=== PATIENT | female | born 1975 | race Caucasian/White ===

== ENCOUNTER 2022-06-01 09:42 | Emergency (ER) | payer OTHER, SELFPAY ==
--- NOTE | ~2022-06-01 | CT_ITS ---
EXAMINATION: CT ABDOMEN AND PELVIS WITHOUT CONTRAST CLINICAL INFORMATION: 46-year-old female with flank pain. Hematuria. COMPARISON: None TECHNIQUE: Multidetector volumetric imaging was performed from the superior aspect of the liver through the pubic symphysis. Sagittal and coronal reformatted images were obtained on the technologist's workstation. This CT examination was performed using dose optimization techniques as appropriate, variously including the following: *Automated exposure control *Adjustment of mA and/or kV according to patient size (this includes techniques or standardized protocols for targeted exams where dose is matched to indication/reason for exam; i.e. extremities or head) *Use of iterative reconstruction technique DLP: 678 mGy-cm FINDINGS: LUNG BASES: Normal. No pulmonary consolidation or pleural effusion. LIVER: The liver has normal size, shape, and attenuation. No evidence of liver mass. GALLBLADDER AND BILIARY TREE: Gallbladder is without radiopaque stones, wall thickening or pericholecystic fluid. No dilated bile ducts. PANCREAS: Normal. No edema, pancreatic ductal dilatation or mass. SPLEEN: Normal. ADRENAL GLANDS: Normal. KIDNEYS AND URETERS: The kidneys have normal size and cortical thickness. No perinephric edema or fluid collection. 0.2 cm calyceal stone of the posterior interpolar region of the right kidney. Otherwise, no evidence of urolithiasis or hydroureteronephrosis. BLADDER: Urinary bladder is empty and suboptimally evaluated. No bladder stones. Note that this examination is not able to exclude any cystitis. BOWEL AND PERITONEUM: Stomach is unremarkable. No dilated loops of bowel. The appendix is normal. No overt bowel wall thickening or mesenteric fat stranding. No free fluid or pneumoperitoneum. ABDOMINAL WALL: Minimal protrusion of fat into the umbilicus. No significant findings in the abdominal wall. VASCULATURE: Unremarkable. LYMPH NODES: No pathologic sized lymph nodes in the abdomen or pelvis. No inguinal lymphadenopathy. PELVIC VISCERA: Hysterectomy. No adnexal mass or pelvic free fluid. Several phleboliths are present within the lower pelvis. MUSCULOSKELETAL: Unremarkable. CT/CT abdomen pelvis wo IV con IMPRESSION: * No specific source of pain is identified. No acute imaging findings in the abdomen or pelvis. * Small, 0.2 cm stone of the right kidney. No large renal stones. Also, no evidence of ureterolithiasis or hydroureteronephrosis.
[2022-06-01 09:57] VITALS: BP 117/75; PULSE 86; RESP 18; TEMP 36.9; O2SAT 95; BMI 32.9
--- NOTE | 2022-06-01 10:06 | ED_ITS ---
HPI - Female Genitourinary General Chief complaint: Urogenital-Female Stated complaint: Kidney infection Time Seen by Provider: 06/01/22 10:05 Source: patient Mode of arrival: ambulatory Limitations: no limitations History of Present Illness HPI Narrative: Patient is a 46-year-old female who presents emergency department for evaluation. Patient states that she was seen at urgent care 2 days ago, received prescription for Macrobid and Pyridium for treatment of urinary tract infection. She has had persistent nausea, and states she is unable to keep her medications down. Additionally reporting bilateral flank pain, when she was initially evaluated she was only having left-sided flank pain. She typically smo kes marijuana to help control her nausea but she states that this has been ineffective. Related Data Previous Rx's Medication Instructions Recorded ondansetron 4 mg disintegrating 4 mg PO Q8H PRN nausea and 06/01/22 tablet vomiting #10 tabs sulfamethoxazole 800 1 tab PO BID 14 days #28 tabs 06/01/22 mg-trimethoprim 160 mg tablet (Bactrim DS) Allergies Allergy/AdvReac Type Severity Reaction Status Date / Time Tetracyclines Allergy Unknown Verified 06/01/22 10:15 Review of Systems Review of Systems: Yes all other systems are reviewed and are negative PMFSH Past Medical History Attestation statement: The following information was validated with the patient. Source: old records reviewed Social History Social History Advance Directives: No Advance Directives Information Provided: Yes Physical Exam Vital Signs: Vital Signs: Last Vital Signs Temp 99.2 F 06/01/22 12:57 Pulse 89 06/01/22 12:57 Resp 16 06/01/22 12:57 BP 103/61 06/01/22 12:57 Pulse Ox 96 06/01/22 12:57 O2 Del Method 06/01/22 12:57 BMI result Body Mass Index 32.9 Appearance: Alert.?Oriented to person, place and time. No acute distress.?Normal affect. Eyes: Pupils equal, round and reactive to light.? ENT: Pharynx normal.?? Neck: Normal inspection.? Neck supple.?? CVS: Heart sounds normal. Normal heart rate and rhythm.? Pulses normal.?? Respiratory: No respiratory distress.? Lung sounds clear to auscultation bilaterally?? Abdomen: Soft and non-tender. Normoactive bowel sounds. Bilateral CVA tenderness Skin: Skin warm and dry.? Normal skin color.?? Extremities: No lower extremity edema.? Neuro: Moves all extremities spontaneously. Sensation intact bilaterally. Ambulates with normal steady gait. Course Reevaluation(s) Reevaluation #1: CBC reveals no leukocytosis, no anemia. CMP is unremarkable, renal function within normal limits. HCG level of 6, patient not currently menstruating repor ts no menses for 10 years, reports history of full hysterectomy 10 years ago in [place], thus denies possibility of Urinalysis with hematuria present, leukocyte esterase and nitrate obscured by urine , she is currently taking Pyridium. Will obtain CT of the abdomen and pelvis to further evaluate for hydronephrosis, nephrolithiasis, ureterolithiasis, evidence of pyelonephritis Time: 11:58 Reevaluation #2: CT without evidence of acute findings, there is a small 0.2 cm stone in the right kidney, no ureterolithiasis or hydroureteronephrosis. Discussed these findings with patient. At this time symptoms continue to be most consistent with urinary tract infection, early pyelonephritis. Will change course of antibiotics, NAHID Nelson new prescription for Bactrim DS b.i.d. for 14 days and ondansetron. Nontoxic, no signs of hypotension/shock, this is not a recurrent pyelonephritis, she is tolerating oral intake, at this time will discharge home and recommend follow-up outpatient with primary care provider. Time: 13:25 Medications Administered Discontinued Medications Generic Name Dose Route Start Last Admin Trade Name Freq PRN Reason Stop Dose Admin Sodium Chloride 1,000 mls @ 999 mls/hr 06/01/22 10:30 06/01/22 13:08 Ns IV 06/01/22 11:30 Infused .Q1H1M SUN Infusion Ondansetron HCl 4 mg 06/01/22 10:19 06/01/22 10:33 Ondansetron Hcl 4 Mg/2 Ml Vial IVPUSH 06/01/22 10:20 4 mg ONCE ONE Administration Medical Decision Making Medical Decision Making [facility] Narrative: Patient is a 46-year-old female with no reported past medical history presenting to emergency department for evaluation of nausea bilateral flank pain in the setting of known UTI. At the time examination she is overall well-appearing. Vitals are stable she is afebrile without tachycardia, tachypnea, or hypoxia. She denies any history of cyclical vomiting marijuana induced vomiting. She has taken 3 doses of Macrobid, states that she begins to vomit 1-2 hours after taking medication. Her abdominal examination is benign, she has CVA tenderness upon very light palpation bilaterally. Will obtain CBC to evaluate for leukocytosis/ anemia, CMP and lipase to evaluate for abnormal electrolytes /abnormal renal function/ abnormal hepatic/biliary function, hCG, and Urinalysis. Patient will receive 1 L normal saline IV, and Zofran 4 mg IV. Disposition pending results. Differential Diagnosis Differential Diagnoses: The differential diagnosis associated with the presentation includes (Urinary tract infection, pyelonephritis, nephrolithiasis, ureteral calculi, hydronephrosis, cholecystitis, lumbar strain, pneumonia) Lab Data MDM Lab Attestation statement: I reviewed the patient's lab results. 06/01/22 10:28 06/01/22 11:11 Labs: Lab Results 06/01/22 06/01/22 06/01/22 Range/Units 10:19 10:28 11:11 WBC 8.3 (4.8-10.8) X10*3/uL RBC 4.75 (4.20-5.50) X10*6/uL Hgb 14.4 (12.0-16.0) g/dl Hct 42.0 (37.0-47.0) % MCV 88.4 (80.0-98.0) fL MCH 30.3 (27.0-33.0) pg MCHC 34.3 (31.0-35.0) g/dl RDW 13.2 (11.0-16.0) % Plt Count 209 (160-400) X10*3/uL MPV 10.1 (9.4-12.3) fL Immature Gran % (Auto) 0.4 (0.0-0.4) % Neut % (Auto) 85.8 H (45-73) % Lymph % (Auto) 5.1 L (20-40) % [place] % (Auto) 8.2 (2-11) % Eos % (Auto) 0.0 (0-4) % Baso % (Auto) 0.5 (0-2) % Lymph # (Auto) 0.4 L (1.2-4.9) X10*3/uL [place] # (Auto) 0.7 (0.1-1.2) X10*3/uL Eos # (Auto) 0.0 (0.0-0.4) X10*3/uL Baso # (Auto) 0.0 (0.0-0.2) X10*3/uL Abs Immat Gran (auto) 0.03 (0.00-0.03) X10*3/uL Absolute Neuts (auto) 7.1 (2.0-8.3) x10*3/uL Absolute Nucleated RBC 0.000 (0.0-0.012) X10*3/uL Nucleated RBC % (auto) 0.0 (0.0-0.2) /100WBC Sodium 137 (135-145) mmol/L Potassium 4.4 (3.3-5.1) mmol/L Chloride 105 (96-108) mmol/L Carbon Dioxide 22 (22-29) mmol/L Anion Gap 14 (12-20) BUN 19 H (9-16) mg/dL Creatinine 0.93 (0.5-1.4) mg/dL Estim Creat Clear Calc 76.4 Estimated GFR > 60 Random Glucose 109 (60-115) mg/dL Calcium 9.0 (8.4-10.2) mg/dL Total Bilirubin 0.9 (0.0-1.0) mg/dL AST 15 (5-31) U/L ALT 15 (0-31) U/L Alkaline Phosphatase 105 (39-117) U/L Total Protein 6.7 (6.5-8.0) g/dL Albumin 4.1 (3.5-5.0) g/dL Lipase 12 (8-78) U/L Beta HCG, Quant 6 mIU/mL Urine Color ORANGE Urine Appearance Hazy Urine pH 6.0 (5.0-9.0) Ur Specific [place] 1.020 (1.005-1.025) Urine Protein See Note (Neg-Trace) mg/dL Urine Glucose (UA) See Note (Negative) mg/dL Urine Ketones See Note (Negative) mg/dL Urine Blood Large (3+) H (Negative) Urine Nitrite See Note (Negative) Ur Leukocyte Esterase See Note (Negative) Urine RBC >20 H (0-2) /HPF Urine WBC 0-5 (0-5) /HPF Ur Squamous Epith Cells 3-5 (0-2) /HPF Urine Bacteria None Seen (None Seen) Hyaline Casts 0-2 (0-2) /LPF Independent Interpretation I performed an independent interpretation of an: CT Scan Radiology Impression Discussion of test interpretation with radiology: I have reviewed the radiologist's reading. Radiologist Impression: CT/CT abdomen pelvis wo IV con IMPRESSION: *? No specific source of pain is identified. No acute imaging findings in the abdomen or pelvis. *? Small, 0.2 cm stone of the right kidney. No large renal stones. Also, no evidence of ureterolithiasis or hydroureteronephrosis. Discharge Plan Discharge Clinical Impression: Urinary tract infection Patient Disposition: Home, Self-Care Instructions: Urinary Tract Infection in Women (ED) Additional Instructions: Stop taking Macrobid. A new prescription for Bactrim DS was sent to your pharmacy, please complete this entire course. In addition, a prescription for Zofran was sent to pharmacy to help with nausea. You can take ibuprofen 200 mg, 3 tablets (600mg) every 6-8 hours as needed for pain, in addition to Tylenol 500 mg, 2 tablets (1,000mg) every 4-6 hours as needed for pain, but not to exceed 3 doses daily (3,000mg).? Please follow-up with your primary care provider for persistent symptoms. Prescriptions: New sulfamethoxazole-trimethoprim [Bactrim DS] 800-160 mg tablet 1 tab PO BID 14 Days Qty: 28 0RF ondansetron 4 mg tablet,disintegrating 4 mg PO Q8H PRN (Reason: nausea and vomiting) Qty: 10 0RF Referrals: Physician,Unknown J [Primary Care Provider] -
[2022-06-01 10:32] LABS: MANUAL DIFF FLAG NO
[2022-06-01] MEDS: ondansetron HCL 4 MG/2 ML VIAL IVPUSH (10:33)
[2022-06-01 10:34] LABS: Basophils Percent Auto 0.5 % (0-2); Hemoglobin 14.4 g/dl (12.0-16.0); Imm Gran Abs Auto 0.03 X10*3/uL (0.00-0.03); Imm Gran Pct Auto 0.4 % (0.0-0.4); Lymphocytes Absolute Auto 0.4 X10*3/uL (1.2-4.9); Lymphocytes Percent Auto 5.1 % (20-40); Mean Corpuscular HGB Conc 34.3 g/dl (31.0-35.0); Mean Corpuscular Hemoglobin 30.3 pg (27.0-33.0); Mean Corpuscular Volume 88.4 fL (80.0-98.0); Mean Platelet Volume 10.1 fL (9.4-12.3); Monocytes Absolute Auto 0.7 X10*3/uL (0.1-1.2); Monocytes Percent Auto 8.2 % (2-11); Neutrophils Absolute Auto 7.1 x10*3/uL (2.0-8.3); Neutrophils Percent Auto 85.8 % (45-73); Platelet Count 209 X10*3/uL (160-400); Red Blood Count 4.75 X10*6/uL (4.20-5.50); Red Cell Distribution Width 13.2 % (11.0-16.0); White Blood Count 8.3 X10*3/uL (4.8-10.8)
[2022-06-01 10:35] LABS: Appearance Urine Hazy; Color Urine ORANGE; UMIC TRIGGER UACC YES; Urine Blood Large (3+) (Negative)
[2022-06-01] MEDS: 0.9 % Sodium Chloride 1,000 ML 999 ML IV (10:36)
[2022-06-01 10:46] LABS: Bacteria Urine None Seen (None Seen); Hyaline Casts Urine 0-2 /LPF (0-2); RBC Urine >20 /HPF (0-2); WBC Urine 0-5 /HPF (0-5)
[2022-06-01 11:40] LABS: Alanine Aminotransferase 15 U/L (0-31); Albumin Level 4.1 g/dL (3.5-5.0); Alkaline Phosphatase 105 U/L (39-117); Anion Gap 14 (12-20); Aspartate Amino Transferase 15 U/L (5-31); Bilirubin Total 0.9 mg/dL (0.0-1.0); Blood Urea Nitrogen 19 mg/dL (9-16); Carbon Dioxide 22 mmol/L (22-29); Chloride 105 mmol/L (96-108); Creatinine Clr Calc Pharmacy 76.4; Estimated Glomerular Filt Rate > 60; Glucose Random 109 mg/dL (60-115); HCG Quantitative 6 mIU/mL; Lipase 12 U/L (8-78); Potassium 4.4 mmol/L (3.3-5.1); Sodium 137 mmol/L (135-145); Total Protein 6.7 g/dL (6.5-8.0)
[2022-06-01 12:57] VITALS: BP 103/61; PULSE 89; RESP 16; TEMP 37.3; O2SAT 96
== END 2022-06-01 13:50 | disposition home or self-care (01) ==
PROVIDERS: Nurse Practitioner Family; Emergency Provider Emergency Medicine
DX: N39.0 Urinary tract infection, site not specified (principal); F12.90 Cannabis use, unspecified, uncomplicated; Z79.899 Other long term (current) drug therapy
CPT/HCPCS: 36415; 74176; 80053; 81001; 83690; 84702; 85025; 96361; 96374; 99284; J2405